=== PATIENT | male | born 1960 | race Asian ===

== ENCOUNTER 2018-08-07 08:08 | Observation (INO) | payer OTHER ==
[2018-08-07] MEDS ORDERED: DIAZEPAM 5 MG TAB PO ONE (08:14)
[2018-08-07] MEDS ORDERED: FAMOTIDINE 20 MG TAB PO ONE (08:14)
[2018-08-07] MEDS ORDERED: diphenhydrAMINE 25 MG CAP PO ONE ×2 (08:14→08:40)
[2018-08-07] MEDS ORDERED: NS 1,000 ML IV ONE (08:14)
[2018-08-07] MEDS ORDERED: ASPIRIN EC 325 MG TAB PO ONE ×2 (08:26→08:41)
[2018-08-07] MEDS ORDERED: VERAPAMIL 5 MG/2 ML VIAL ONE (08:28)
[2018-08-07] MEDS ORDERED: IOPAMIDOL (ISOVUE-370) 150 ML BTL IV ONE (08:28)
[2018-08-07] MEDS ORDERED: MIDAZOLAM 2 MG/2 ML VIAL ONE (08:28)
[2018-08-07] MEDS ORDERED: HEPARIN 10,000 UNIT/10 ML MDV (1,000 UNIT/ML) ONE (08:28)
[2018-08-07] MEDS ORDERED: fentaNYL 100 MCG/2 ML INJ ONE (08:28)
[2018-08-07] MEDS ORDERED: LIDOCAINE 1% 300 MG/30 ML SDV ONE (08:28)
[2018-08-07] MEDS ORDERED: FAMOTIDINE 20 MG TAB ONE (08:40)
[2018-08-07] MEDS ORDERED: DIAZEPAM 5 MG TAB ONE (08:41)
[2018-08-07 08:48] LABS: PLATELET COUNT 219 10^3/uL (150-400)
[2018-08-07] MEDS ORDERED: ONDANSETRON 4 MG/2 ML VIAL ONE (08:56)
[2018-08-07 09:08] LABS: INR 0.96 (0.83-1.16)
--- NOTE | 2018-08-07 09:36 | PDPROPOC ---
Sedation Plan of Care Sedation Plan of Care: vital signs stable, mental status noted, patient educated of risks, benefits, alternatives, patient can tolerate sedation ASA Classification: ASA 2 Planned drugs: fentanyl, midazolam Mallampati Score: Class 1 Mallampati Reference Image: Patient passed 3-3-2 rule?: Yes
--- NOTE | 2018-08-07 09:36 | PDHPUP ---
History & Physical Update H&P update statement: This history and physical update is based on an assessment of the patient which was completed after admission or registration (within 24 hours), but prior to the surgery/procedure. H&P update: H&P reviewed & patient examined, no change in patient's condition since H&P completed
[2018-08-07] MEDS ORDERED: NITROGLYCERIN 0.4 MG BTL SL PRN (11:00)
[2018-08-07] MEDS ORDERED: ONDANSETRON 4 MG/2 ML VIAL IVP PRN (11:00)
[2018-08-07] MEDS ORDERED: PRASUGREL HCL 10 MG TAB PO ONE (11:00)
[2018-08-07] MEDS ORDERED: ATROPINE SULFATE 1 MG/10 ML SYR IVP PRN (11:00)
--- NOTE | 2018-08-07 11:00 | CPEKG ---
Test Reason : OPEN Blood Pressure : / mmHG Vent. Rate : 079 BPM Atrial Rate : 080 BPM P-R Int : 167 ms QRS Dur : 101 ms QT Int : 381 ms P-R-T Axes : 059 059 027 degrees QTc Int : 437 ms Sinus rhythm Confirmed by Darwin Rasmussen ([id number]) on 08/07/2018 11:00:38 AM Referred By: Confirmed By:Darwin Rasmussen
--- NOTE | 2018-08-07 11:12 | PDDXCAT ---
Diagnostic Cath Note - . Date: 08/07/18 Advertising Manager: Arianna Indication: other (Known coronary artery disease. Previous noninvasive testing that was normal. Ongoing symptoms of angina despite medical therapy.) - Procedure Access: right wrist Procedure: left heart catheterization, coronary angiography, left ventriculogram - Materials Left Heart Cath size: 5F Left Heart Cath materials: JR4.0, pigtail, other (AL1) - Findings-Left Heart Catheterization LM: Moderate caliber vessel. Appropriate bifurcation into left anterior descending and circumflex. Minimal luminal irregularities with no obstructive lesions. LAD: Moderate caliber, transapical vessel. 2 principal diagonal branches. A stent is visualized in the proximal segment that is widely patent. There are luminal irregularities throughout the vessel with no obstructive lesions. LCX: Moderate caliber. 2 small proximal obtuse marginal branches and 2 posterolateral branches. In the distal seneca vessel a 30% lesion is noted. There are no obstructive lesions. RCA: Moderate caliber. Dominant. The PDA and a small posterolateral branch are noted. In the proximal segment, there is a long tubular lesion that appears to be 60-70% obstructive. EDP: 24 mmHg. LVEF: 55%. Wall motion: Mild anterolateral hypokinesis. Complications: None. Estimated blood loss: <50ml Closure method: TR Band Assessment: 1. Known coronary artery disease with previous PCI/stenting of the LAD approximately 10 years ago. 2. Ongoing symptoms of angina at rest. 3. Angiography that indicates and indeterminate lesion within the midportion of the RCA that has progressed compared to prior angiograms. Widely patent previously placed LAD stent. Normal ejection fraction. Plan: Patient referred to Dr. Alcides Marquez for intravascular ultrasound of the indeterminate right coronary lesion and PCI/stenting if appropriate. Intervention: See separately dictated report by Dr. Alcides Marquez.
[2018-08-07] MEDS ORDERED: PRASUGREL HCL 10 MG TAB ONE (11:23)
--- NOTE | 2018-08-07 11:43 | CPIP ---
DATE OF PROCEDURE: 08/07/2018 PROCEDURE PERFORMED: 1. Coronary catheterization. 2. Selective coronary angiography. 3. Intravascular ultrasound of the right coronary artery. 4. Percutaneous transluminal coronary angioplasty and stent placement of the right coronary artery R CA with the use of a Synergy 3.5 x 16 mm drug-eluting stent. 5. TR Band arteriotomy repair. COMPLICATIONS: None. INDICATION FOR THE PROCEDURE: The patient has history of CCS class IV angina occurring at rest with a history of prior stent implantation. He underwent cardiac catheterization under the care of Dr. Cleaning, I was asked for an intraoperative consultation because of findings of apparent angiographic obstruction of the RCA. Indeed on angiography with a 5-Tamazight diagnostic catheter, it appeared that there was haziness and decreased dye density within the mid RCA between the RV and acute marginal bra nches. This was estimated angiographically to be 70% to 80% stenosis. To ensure that the findings w ere indeed flow-limiting because of the patient's atypical presentation, Dr. Keller asked me for intra operative FFR or intravascular ultrasound to better characterize the lesion. PROCEDURE IN DETAIL: A 5-Tamazight JR4 guiding catheter was used for guide catheter support and was adv anced under direct fluoroscopic guidance and seated into the right coronary artery with the use of a Foster wire. The patient then underwent angiography documenting a high-grade stenosis of the mid righ t coronary artery. A 0.014 Intuition wire was advanced across the lesion in question under direct fl uoroscopic and angiographic guidance. The patient then was found to have a 79% plaque area of stenos is on the basis of angiography with evidence of a potential void within the plaque which may be consi stent with a ruptured plaque in the exact region in question. Because of the findings on intravascul ar ultrasound of a probable obstructive lesion at approximately 80% stenosis, the patient underwent P TCA and stent placement with the use of a 3.5 x 16 Synergy drug-eluting stent inflated with the stent delivery system at a maximum pressure of 14 atmospheres with 2 serial inflations with excellent roya ographic results in 2 orthogonal views and excellent stent geometry. The patient tolerated the proce dure well without immediate complication and underwent successful TR band arteriotomy repair. The pa tient was documented to have an adequate ACT of 248 seconds prior to stent implantation and an additi onal 3000 of heparin was given at that time. FINAL IMPRESSION: Successful drug-eluting stent implantation for indication of rest angina. The pat ient would benefit from dual antiplatelet therapy with aspirin initially for 325 mg along with Plavix or Effient to complete a one-year cycle. After 30 days it would be okay to reduce the aspirin dose to 81 mg daily along with either Plavix 75 mg or Effient 10 mg to complete one year of dual antiplate let therapy post stent implantation. /[id number]/MODL
[2018-08-07] MEDS: HYDROCODONE/APAP 5/325 TAB PO PRN ×2 (12:10→13:07)
--- NOTE | 2018-08-07 12:26 | CPEKG ---
Test Reason : OPEN Blood Pressure : / mmHG Vent. Rate : 067 BPM Atrial Rate : 064 BPM P-R Int : 179 ms QRS Dur : 100 ms QT Int : 406 ms P-R-T Axes : 044 055 028 degrees QTc Int : 429 ms Sinus rhythm Minimal ST elevation, anterior leads Confirmed by Darwin Rasmussen ([id number]) on 08/07/2018 12:26:14 PM Referred By: Confirmed By:Darwin Rasmussen
[2018-08-07] MEDS ORDERED: DIAZEPAM 2 MG TAB PO PRN (16:28)
[2018-08-07] MEDS ORDERED: LORazepam 1 MG TAB PO PRN (16:28)
[2018-08-07] MEDS ORDERED: CYCLOBENZAPRINE 10 MG TAB PO PRN (16:28)
[2018-08-07] MEDS ORDERED: TRIAMCINOLONE 0.5% 15GM CREAM TP PRN (16:28)
[2018-08-07] MEDS ORDERED: GABAPENTIN 300 MG CAP PO PRN (16:28)
[2018-08-07] MEDS ORDERED: CLOTRIMAZOLE/BETAMET DIPROP 15 GM CRTUBE TP PRN (16:28)
[2018-08-07] MEDS: CARVEDILOL 3.125 MG TAB PO SCH (17:38)
[2018-08-07] MEDS ORDERED: ATORVASTATIN CALCIUM 40 MG TAB PO SCH (21:00)
[2018-08-08 05:03] LABS: PLATELET COUNT 209 10^3/uL (150-400)
[2018-08-08 07:50] VITALS: BP 115/75
[2018-08-08] MEDS ORDERED: PNEUMOCOCCAL 0.5ML VACCINE VIAL (PNEUMOVAX 23) IM ONE (08:41)
[2018-08-08] MEDS ORDERED: ISOSORBIDE MONONITRATE 20 MG TAB PO SCH (09:00)
[2018-08-08] MEDS ORDERED: PIOGLITAZONE HCL 15 MG TAB PO SCH (09:00)
[2018-08-08] MEDS ORDERED: PRASUGREL HCL 10 MG TAB PO SCH (09:00)
[2018-08-08] MEDS ORDERED: PANTOPRAZOLE SODIUM 40 MG TAB PO SCH (09:00)
[2018-08-08] MEDS ORDERED: TELMISARTAN 40 MG TAB PO SCH (09:00)
[2018-08-08] MEDS ORDERED: ASPIRIN EC 325 MG TAB PO SCH (09:00)
[2018-08-08] MEDS: CARVEDILOL 3.125 MG TAB PO SCH (09:08)
--- NOTE | 2018-08-08 10:30 | ASDISCHSUM ---
Discharge Information Plan Status:Home with No Needs Medically Cleared to Leave: Discharge Date: CM D/C Disposition:Home, Routine, Self-Care ADT D/C Disposition:Home, Routine, Self-Care Projected Discharge Date: Transportation at D/C:Family Discharge Delay Reason: Follow-Up Date: Discharge Slot: Final Diagnosis: Placement Information Patient Contact Information Contact Name:KENJI Relationship: Address:[address] Work Phone: City:[place] Alternate Phone: State/Zip Code:[place] [address] Email: Financial Information [facility] Desc:[facility] LOC[facility] Primary Plan Number:[id number] Secondary Plan Desc: Secondary Plan Number: Assessment Information LACE LACE Length of stay for Answers: Less than 1 day current admission Comorbidities - select Answers: Coronary Artery Disease all that apply # of Emergency department Answers: 0 visits in the last 6 months Score: 2 Date Signed: 08/08/2018 10:28 AM Electronically Signed By:Shanell Quigley Intervention Information
--- NOTE | 2018-08-08 11:21 | CPEKG ---
Test Reason : OPEN Blood Pressure : / mmHG Vent. Rate : 073 BPM Atrial Rate : 072 BPM P-R Int : 169 ms QRS Dur : 095 ms QT Int : 387 ms P-R-T Axes : 039 047 021 degrees QTc Int : 427 ms Sinus rhythm Borderline ST elevation, anterior leads Confirmed by Darwin Rasmussen ([id number]) on 08/08/2018 11:20:30 AM Referred By: Confirmed By:Darwin Rasmussen
--- NOTE | 2018-08-08 12:36 | GDS ---
DISCHARGE DIAGNOSES: 1. Coronary artery disease with 70% to 80% stenosis to the right coronary artery, which was stented with a 3.5 x 16 mm Synergy drug-eluting stent. 2. Diabetes. 3. Hypertension. 4. Hyperlipidemia. HOSPITAL COURSE: The patient is a 58-year-old male with a history of coronary artery disease, status post stenting to his left anterior descending artery remotely in 2007. He also has a history of hyp ertension and hyperlipidemia. He presented to our office complaining of chest pain, which was worse at nighttime. It typically would wake him from his sleep. He had a nuclear stress test, which was l ow risk, but given his persistent discomfort, the decision was made to proceed with an angiogram. He was found to have a 70% to 80% stenosis within the right coronary artery, which was stented with a 3 .5 x 16 mm Synergy drug-eluting stent. The left anterior descending artery and left circumflex arter y had mild disease without obstruction. His prior placed stent was widely patent. The patient denie d any discomfort throughout the night, but did have some mild chest pain the following morning. It p ersisted for approximately 30 minutes and was relieved after taking his morning medications. He stat es overall he feels significantly better. He ambulated in the halls without any chest discomfort thi s morning. His EKG showed normal sinus rhythm without any ST-T wave changes to suggest ischemia. He is currently chest pain free. LABS: LDL 77, HDL 46, triglycerides 105. PHYSICAL EXAMINATION: GENERAL: Patient appears in no acute distress. VITALS: Blood pressure 115/7 5, heart rate 66, oxygen saturation of 94% on room air. Afebrile. LUNGS: Clear to auscultation. N o wheezes, rhonchi, or crackles auscultated. CARDIAC: Regular rate and rhythm, without any signific ant murmurs, rubs, or gallops appreciated. EXTREMITIES: Right wrist where access was obtained for t he angiogram is clean and intact, without any evidence of infection or hematoma. DISCHARGE MEDICATIONS: Effient 10 mg daily, aspirin 325 mg daily, Coreg 3.125 mg b.i.d., Glucophage XR 500 mg at bedtime. He will hold this for 48 hours post angiogram. Micardis 40 mg daily, Protonix 40 mg daily, Valium 2 mg p.r.n., Flexeril 10 mg p.r.n., Actos 30 mg daily, Neurontin 300 mg p.r.n., Lipitor 80 mg daily. Lovastatin and Imdur have both been discontinued. PLAN: The patient is currently stable and ready for discharge home. He is aware that he is to remai n on aspirin and Effient for a minimum of 1 year. Wrist precautions were discussed with him today. He is scheduled to follow up with Mark Anthony, our nurse practitioner, on 08/16 at 1 p.m. He has also been instructed to hold his metformin for 48 hours post angiogram. Greater than 30 minutes was spent coordinating the patient's care today. /[id number]/MODL
[2018-08-09] MEDS ORDERED: metFORMIN SR 500 MG TAB PO SCH (21:00)
== END 2018-08-08 11:59 | disposition home or self-care (01) ==
LOC: FCATH 08:08 → F3N 11:01 → F2W 12:35
PROVIDERS: ADMIT Internal Medicine Cardiovascular Disease; ATTEND Internal Medicine Cardiovascular Disease
PROC: B244ZZ3 Ultrasonography of Right Heart, Intravascular (ICD-10-PCS; principal; 2018-08-07)
PROC: 027034Z Dilation of Coronary Artery, One Artery with Drug-eluting Intraluminal Device, Percutaneous Approach (ICD-10-PCS; principal; 2018-08-07)
PROC: B2151ZZ Fluoroscopy of Left Heart using Low Osmolar Contrast (ICD-10-PCS; 2018-08-07)
PROC: 4A023N7 Measurement of Cardiac Sampling and Pressure, Left Heart, Percutaneous Approach (ICD-10-PCS; 2018-08-07)
PROC: B2111ZZ Fluoroscopy of Multiple Coronary Arteries using Low Osmolar Contrast (ICD-10-PCS; 2018-08-07)
DX: I25.119 Atherosclerotic heart disease of native coronary artery with unspecified angina pectoris (principal); I10 Essential (primary) hypertension; E11.9 Type 2 diabetes mellitus without complications; E78.5 Hyperlipidemia, unspecified; Z23 Encounter for immunization; Z79.84 Long term (current) use of oral hypoglycemic drugs; Z86.73 Personal history of transient ischemic attack (TIA), and cerebral infarction without residual deficits
CPT/HCPCS: 90471; 92928; 92978; 93005; 93458; C1753; C1769; C1887; G0378; C1874; C9600; G0009; J1644; J2250; J2405; J3010; Q9967